=== PATIENT | male | born 1965 | race Caucasian/White ===

== ENCOUNTER 2020-05-21 21:40 | Emergency (ER) | payer BC, OTHER ==
--- NOTE | 2020-05-21 21:43 | ERPHSYRPT ---
- History of Present Illness Time Seen by Provider: 05/21/20 21:43 Source: patient, family Exam Limitations: no limitations Physician History: This is a 55-year-old gentleman who presents with bilateral lower back pain described as sharp spasms. Patient denies any acute trauma or fall. He has had some chronic issues in the past but never as bad as today. He feels some numbness and shooting pain down his right buttock and burning pain in his anterior and posterior upper lower leg. He has no problems with bowel or urinary bladder control. He is able to ambulate. Timing/Duration: today Method of Injury: other (No injury) Back Pain Location: lumbar spine, paraspinous muscles Back Pain Radiation: upper legs Severity of Pain-Max: moderate (Right side) Severity of Pain-Current: moderate Modifying Factors: Improves With: movement Associated Symptoms: numbness in legs/feet (Right anterior thigh), muscle spasms (Bilateral lower back), No urinary incontinence, No loss of bowel control Previous symptoms: no prior history Allergies/Adverse Reactions: No Known Drug Allergies Allergy (Verified 05/21/20 21:49) Home Medications: Desvenlafaxine [Desvenlafaxine ER] 100 mg PO DAILY 05/21/20 [History] Hx Tetanus, Diphtheria Vaccination/Date Given: No Hx Influenza Vaccination/Date Given: No Hx Pneumococcal Vaccination/Date Given: No Travel Risk - International Travel Have you traveled outside of the country in past 3 weeks: No - Coronavirus Screening Are you exhibiting any of the following symptoms?: No Close contact with a COVID-19 positive Pt in past 14-21 Days: No - Review of Systems Constitutional: No Symptoms Eyes: No Symptoms Ears, Nose, & Throat: No Symptoms Respiratory: No Symptoms Cardiac: No Symptoms Abdominal/Gastrointestinal: No Symptoms Genitourinary Symptoms: No Symptoms Musculoskeletal: Back Pain (Bilateral lower lumbar) Skin: No Symptoms Neurological: No Symptoms Psychological: No Symptoms Endocrine: No Symptoms Hematologic/Lymphatic: No Symptoms Immunological/Allergic: No Symptoms All Other Systems: Reviewed and Negative - Past Medical History Pertinent Past Medical History: Yes Neurological History: No Pertinent History ENT History: No Pertinent History Cardiac History: No Pertinent History Respiratory History: No Pertinent History Endocrine Medical History: No Pertinent History Musculoskeletal History: No Pertinent History GI Medical History: No Pertinent History History: Other (spontaneous renal failure 7 years ago unknown etiology cared for by nephrology at [facility] times one week, also kidney stones.) Psycho-Social History: No Pertinent History Male Reproductive Disorders: No Pertinent History Other Medical History: KIDNEY FAILURE - Past Surgical History Past Surgical History: Yes Neuro Surgical History: No Pertinent History Cardiac: No Pertinent History Respiratory: No Pertinent History Gastrointestinal: No Pertinent History Genitourinary: No Pertinent History Musculoskeletal: No Pertinent History Male Surgical History: Vasectomy Other Surgical History: SPLEENECTOMY - Social History Smoking Status: Never smoker Exposure to second hand smoke: No Drug Use: none Patient Lives Alone: No - Nursing Vital Signs Nursing Vital Signs: Initial Vital Signs Temperature 97.8 F 05/21/20 21:50 Pulse Rate 79 05/21/20 21:50 Respiratory Rate 14 05/21/20 21:50 Blood Pressure 163/89 05/21/20 21:50 O2 Sat by Pulse Oximetry 98 05/21/20 21:50 Pain Scale Pain Intensity [Back] 5 Pain Intensity 6 - Physical Exam General Appearance: mild distress, alert, anxiety Eye Exam: PERRL/EOMI, eyes nml inspection Ears, Nose, Throat Exam: normal ENT inspection, moist mucous membranes Neck Exam: normal inspection, non-tender, supple, full range of motion Respiratory Exam: airway intact, No chest tenderness, No respiratory distress Gastrointestinal Exam: No tenderness Rectal Exam: not done Back Exam: muscle spasm (Bilateral lower lumbar) Extremity Exam: normal inspection, normal range of motion, pelvis stable Neurologic Exam: alert, oriented x 3, cooperative, 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, normal mood/affect, nml cerebellar function, sensation nml Skin Exam: normal color, warm, dry Lymphatic Exam: No adenopathy SpO2 Interpretation: normal O2 Delivery: Room Air - Course Nursing assessment & vital signs reviewed: Yes Ordered Tests: Medication Summary Discontinued Medications Generic Name Dose Route Start Last Admin Trade Name Freq PRN Reason Stop Dose Admin Hydromorphone HCl 1 mg 05/21/20 22:03 05/21/20 22:21 Hydromorphone 1 Mg/Ml Injection IV 05/21/20 22:04 Not Given STAT ONE Hydromorphone HCl Confirm 05/21/20 22:17 Hydromorphone 1 Mg/Ml Injection Administered 05/21/20 22:18 Dose 1 mg .ROUTE .STK-MED ONE Hydromorphone HCl 1 mg 05/21/20 22:26 Hydromorphone 1 Mg/Ml Injection IM 05/21/20 22:27 STAT ONE Lorazepam 0.5 mg 05/21/20 22:05 05/21/20 22:18 Ativan 2 Mg/1 Ml Vial IM 05/21/20 22:06 0.5 mg STAT ONE Administration Lorazepam Confirm 05/21/20 22:16 Ativan 2 Mg/1 Ml Vial Administered 05/21/20 22:17 Dose 2 mg .ROUTE .STK-MED ONE Methylprednisolone Sodium Succinate 125 mg 05/21/20 22:03 05/21/20 22:18 Solu-Medrol 125 Mg IM 05/21/20 22:04 125 mg STAT ONE Administration Methylprednisolone Sodium Succinate Confirm 05/21/20 22:17 Solu-Medrol 125 Mg Administered 05/21/20 22:18 Dose 125 mg .ROUTE .STK-MED ONE Ondansetron HCl 4 mg 05/21/20 22:04 05/21/20 22:19 Zofran Odt 4 Mg PO 05/21/20 22:05 4 mg STAT ONE Administration Ondansetron HCl Confirm 05/21/20 22:16 Zofran Odt 4 Mg Administered 05/21/20 22:17 Dose 4 mg .ROUTE .STK-MED ONE - Progress Progress: improved, pain not gone completely, re-examined Counseled pt/family regarding: diagnosis, need for follow-up - Departure Departure Disposition: Home Clinical Impression: Back pain, Sciatica Condition: Stable Critical Care Time: No Referrals: INDRA POOLE NP [NON-STAFF PHY W/O PRIVILEGES] - Additional Instructions: Follow-up with your primary care physician on Sunday, May 24, 2020 for further management. Take your medication as prescribed. Do not take your Skelaxin muscle relaxant while taking Soma muscle relaxant. Prescriptions: Oxycodone HCl/Acetaminophen [Percocet 5-325 mg Tablet] 1 each PO Q8H PRN PRN #8 tablet MDD 3 PRN Reason: Pain Carisoprodol 350 mg [Soma 350 mg] 350 mg PO Q8H PRN PRN #10 tablet PRN Reason: Muscle Spasms Prednisone 10 mg [Deltasone 10 mg] 10 mg PO TID #12 tablet
[2020-05-21] MEDS ORDERED: solu-MEDROL 125 MG IM ONE (22:03)
[2020-05-21] MEDS ORDERED: Hydromorphone 1 mg/ml Injection IV ONE (22:03)
[2020-05-21] MEDS ORDERED: ZOFRAN ODT 4 MG PO ONE (22:04)
[2020-05-21] MEDS ORDERED: Ativan 2 MG/1 ML VIAL IM ONE (22:05)
[2020-05-21 22:14] VITALS: O2SAT 97
[2020-05-21] MEDS ORDERED: ZOFRAN ODT 4 MG ONE (22:16)
[2020-05-21] MEDS ORDERED: Ativan 2 MG/1 ML VIAL ONE (22:16)
[2020-05-21] MEDS ORDERED: solu-MEDROL 125 MG ONE (22:17)
[2020-05-21] MEDS ORDERED: Hydromorphone 1 mg/ml Injection ONE (22:17)
[2020-05-21] MEDS ORDERED: Hydromorphone 1 mg/ml Injection IM ONE (22:26)
[2020-05-21 22:43] VITALS: BP 158/94; PULSE 73
== END 2020-05-21 23:06 | disposition home or self-care (01) ==
LOC: ED 21:40
DX: M54.9 Dorsalgia, unspecified (principal); M54.30 Sciatica, unspecified side; R20.0 Anesthesia of skin; R25.2 Cramp and spasm; Z79.899 Other long term (current) drug therapy
CPT/HCPCS: 96372; 99284; J1170; J2060; J2930; Q0162